=== PATIENT | female | born 1980 | race Hispanic/Latino ===

== ENCOUNTER 2021-10-27 10:22 | Day surgery (SDC) | payer BC ==
[2021-10-21 10:21] VITALS: BMI 29.2
[2021-10-22 12:17] LABS: Hemoglobin 14.3 g/dL (12.0-15.5); Mean Corpuscular Hemoglobin 32.8 pg (27.0-33.0); Mean Corpuscular Volume 96.3 fl (81.6-98.3); Mean Platelet Volume 8.9 fl (7.4-10.4); Platelet Count 334 10x3/uL (150-450); RBC Distribution Width 11.7 % (11.5-14.5); Red Blood Cell (RBC) Count 4.36 10x6/uL (3.90-5.03); White Blood Cell (WBC) Count 6.9 10x3/uL (3.5-10.5)
[2021-10-22 12:36] LABS: BHCG - Serum Negative (NEGATIVE); Pregs Control Background? CLEAR/WHITE (CLR/WHITE); Pregs Control Bar Appear? YES (CONTROL BAR)
[2021-10-23 21:57] LABS: SARS-CoV-2 PCR by NAA Not Detected (NotDetected)
[2021-10-27] MEDS ORDERED: Gabapentin 300 MG CAP ONE (10:44)
[2021-10-27] MEDS ORDERED: Lidocaine 1% MPF 2 ML VIAL ONE (10:44)
[2021-10-27] MEDS ORDERED: CeleCOXIB 100 MG CAP ONE (10:44)
[2021-10-27] MEDS ORDERED: Famotidine/PF 20 mg/2ml Vial ONE (10:44)
[2021-10-27] MEDS ORDERED: Fentanyl 100 MCG/2 ML VIAL ONE (11:34)
[2021-10-27] MEDS ORDERED: Midazolam HCl 2 mg/2 ml Vial ONE (11:34)
[2021-10-27] MEDS ORDERED: PROPOFOL 20 ML ONE (11:34)
[2021-10-27] MEDS ORDERED: Ondansetron PF 4 MG/2 ML Vial ONE ×2 (11:35→14:54)
[2021-10-27] MEDS ORDERED: Lidocaine 1% PF 5 ML VIAL ONE (11:35)
[2021-10-27] MEDS ORDERED: Dexamethasone 4 mg/ml Vial ONE (11:35)
[2021-10-27] MEDS ORDERED: CEFAZOLIN 1 GM VIAL ONE (12:11)
[2021-10-27] MEDS ORDERED: Water For Injection,Sterile 20 ML ONE (12:12)
== END 2021-10-27 15:45 | disposition home or self-care (01) ==
LOC: CSHSDC 10:22
PROVIDERS: ATTEND Obstetrics & Gynecology
PROC: 0UDB7ZX Extraction of Endometrium, Via Natural or Artificial Opening, Diagnostic (ICD-10-PCS; principal; 2021-10-27)
PROC: 0U5B8ZZ Destruction of Endometrium, Via Natural or Artificial Opening Endoscopic (ICD-10-PCS; principal; 2021-10-27)
DX: N92.0 Excessive and frequent menstruation with regular cycle (principal); Z91.013 Allergy to seafood; Z98.51 Tubal ligation status; Z20.822 Contact with and (suspected) exposure to COVID-19
CPT/HCPCS: 84703; 85027; 86850; 86900; 86901; 88305; J0690; J1100; J2250; J2405; J2704; J3010; S0028; U0003; U0005